=== PATIENT | male | born 1945 | race Caucasian/White ===

== ENCOUNTER → 2017-09-03 | Outpatient (CLI) | payer MEDICARE, OTHER ==
[~2017-09-03] MED LIST: CLPD75T PO; LISI10TA2 PO; SIMV80TA3 PO
== END ==
LOC: CARD 11:42
PROVIDERS: ATTEND Internal Medicine Cardiovascular Disease
DX: I25.10 Atherosclerotic heart disease of native coronary artery without angina pectoris (principal); I63.9 Cerebral infarction, unspecified; I10 Essential (primary) hypertension; E78.2 Mixed hyperlipidemia; I34.0 Nonrheumatic mitral (valve) insufficiency
CPT/HCPCS: 93306

== ENCOUNTER → 2019-03-16 | Outpatient (CLI) | payer MEDICARE, OTHER ==
[~2019-03-16] VITALS: Ht 180 cm; Wt 100.0 kg
[~2019-03-16] MED LIST changes: +CALC625T PO; +CATHETER FLUSH 10 ML SYR IV PRN; +CLOP75TA28 PO; +CYAN250014 PO; +DIPH25TA31 PO; +HYDR25TA4 PO; +IBUP-2185 PO; +LISI-552 PO; +MG T1TAB2 PO; +SIMV40TA25 PO; +SIMV80TA21 PO
[2019-03-16 13:10] VITALS: BP 123/71
--- NOTE | 2019-03-16 18:28 | STRESS TEST ---
DATE OF SERVICE: 03/16/2019 EXERCISE MYOVIEW STRESS TEST Baseline heart rate is 50, baseline blood pressure 121/63. Baseline EKG is sinus rhythm with no ischemic changes. In summary, the patient was injected with 10.44 mCi of technetium-99 Myoview and the resting images were obtained. Then, the patient started exercising with baseline heart rate, blood pressure and EKG mentioned above. Early in exercise, the patient started to have ventricular bigeminy, was able to exercise for a total of 4 minutes and 50 seconds on standard Elbert protocol. With peak exercise level, EKG was showing nondiagnostic changes. The patient was injected with 28.9 mCi of technetium-99 Myoview. During recovery, heart rate and blood pressure returned to baseline. EKG returned to baseline. The resting and stress images were reviewed and compared in the short axis, horizontal long axis, and vertical long axis views. Review of the images showed decreased uptake involving the true apex and anteroapical segment with mild reversibility. SSS is 5, SDS 3, TID value 1.15. On the images, the left ventricle is normal in size with hypokinesia at the inferior wall and inferolateral wall. Calculated ejection fraction is 44%. CONCLUSION: 1. Fair exercise tolerance, a total of 4 minutes and 50 seconds on standard Elbert protocol, total of 6.8 METs achieving 95% of maximum expected heart rate. 2. Exercise-induced frequent premature ventricular contractions and ventricular bigeminy. 3. Nondiagnostic EKG changes with exercise returned to baseline during recovery. 4. Mild reversible ischemia involving the true apex and anteroapical segment. 5. Normal left ventricular size with hypokinesia at the inferior wall and inferolateral wall. Calculated ejection fraction is 44%. Job ID: [id number] DocumentID: [id number] Dictated Date: 03/16/2019 17:13:18 Engineering Mechanic Date: 03/16/2019 18:27:09 Dictated By: NANDO BECK MD
== END ==
LOC: CARD 11:16
PROVIDERS: ATTEND Internal Medicine Cardiovascular Disease
DX: I25.10 Atherosclerotic heart disease of native coronary artery without angina pectoris (principal); E78.2 Mixed hyperlipidemia; I10 Essential (primary) hypertension
CPT/HCPCS: 78452; 93017

== ENCOUNTER 2019-03-18 07:47 | Day surgery (SDC) | payer MEDICARE, OTHER ==
[2019-03-18] VITALS (9 sets, daily range): BP systolic 105–135; BP diastolic 65–74
[~2019-03-18] VITALS: Ht 180 cm; Wt 98.8 kg
[~2019-03-18 07:47] MED LIST changes: -CALC625T PO; -CATHETER FLUSH 10 ML SYR IV PRN; -CLOP75TA28 PO; -CYAN250014 PO; -DIPH25TA31 PO; -HYDR25TA4 PO; -IBUP-2185 PO; -LISI-552 PO; -MG T1TAB2 PO; -SIMV40TA25 PO; -SIMV80TA21 PO
[2019-03-18] MEDS ORDERED: LIDOCAINE 1% INJ 20 ML 20 ML VIAL ONE (07:52)
[2019-03-18] MEDS ORDERED: HEParin 1000 UNIT/ML (10ML VIAL) FOR BOLUS ONE (07:52)
[2019-03-18] MEDS ORDERED: NS IV 1000 ML 3,000 ML ONE (07:52)
[2019-03-18] MEDS ORDERED: NS IV 1000 ML 1,000 ML IV SCH ×2 (07:57→10:02)
--- NOTE | 2019-03-18 08:25 | Diagnostic Imaging Report ---
INDICATION: Pre-heart catheterization and shortness breath. TIME OF EXAM: 8:15 AM Comparison is made with prior chest from 11/30/2013. There is linear atelectasis or scarring in both bases. Otherwise lungs are clear. No effusion or pneumothorax seen. The heart size is normal. IMPRESSION: No acute cardiopulmonary process is detected. Dictated by: Dictated on workstation # [id number]
[2019-03-18 08:32] LABS: HEMOGLOBIN 15.5 G/DL (13.3-17.7); MEAN PLATELET VOLUME 10.7 FL (7.4-10.4); RED CELL DISTRIBUTION WIDTH 12.7 % (10.0-14.5); WHITE BLOOD COUNT 4.6 10^3/uL (4.3-11.0)
[2019-03-18] MEDS ORDERED: SIMV80TA21 PO (08:35)
[2019-03-18] MEDS ORDERED: CLOP75TA28 PO (08:35)
[2019-03-18] MEDS ORDERED: HYDR25TA4 PO (08:35)
[2019-03-18] MEDS ORDERED: LISI-552 PO (08:35)
[2019-03-18] MEDS ORDERED: SIMV40TA25 PO (08:43)
[2019-03-18] MEDS ORDERED: IBUP-2185 PO (08:43)
[2019-03-18] MEDS ORDERED: CALC625T PO (08:43)
[2019-03-18] MEDS ORDERED: CYAN250014 PO (08:43)
[2019-03-18] MEDS ORDERED: MG T1TAB2 PO (08:43)
[2019-03-18] MEDS ORDERED: DIPH25TA31 PO (08:43)
[2019-03-18 08:46] LABS: PROTHROMBIN TIME PATIENT 13.3 SEC (12.2-14.7)
[2019-03-18 08:55] LABS: ALANINE AMINOTRANSFERASE 19 U/L (0-55); ALBUMIN 4.6 GM/DL (3.2-4.5); ALKALINE PHOSPHATASE 59 U/L (40-136); BILIRUBIN,TOTAL 0.7 MG/DL (0.1-1.0); BUN/CREATININE RATIO 16; CALCIUM 9.3 MG/DL (8.5-10.1); CARBON DIOXIDE 23 MMOL/L (21-32); CHLORIDE 102 MMOL/L (98-107); CHOLESTEROL 140 MG/DL (< 200); CREATININE SERUM 1.45 MG/DL (0.60-1.30); GFR ESTIMATED 47; GLUCOSE 100 MG/DL (70-105); HDL CHOLESTEROL 41 MG/DL (40-60); POTASSIUM 4.3 MMOL/L (3.6-5.0); SODIUM 136 MMOL/L (135-145); TOTAL PROTEIN 7.3 GM/DL (6.4-8.2); TRIGLYCERIDES 96 MG/DL (<150); VLDL CHOLESTEROL 19 MG/DL (5-40)
--- NOTE | 2019-03-18 09:08 | Cardiac Procedure Note-CS/ASA ---
Pre-Procedure Note Pre-Op Procedure Note H&P Reviewed The H&P was reviewed, patient examined and no changes noted. Date H&P Reviewed: Mar 18, 2019 Time H&P Reviewed: 09:08 Conscious Sedation Pre-Proced Time 09:08 ASA Score 3 For ASA 3 and 4: Consider anesthesia and medical clearance. Also, for patients with a history of failed moderate sedation consider anesthesia. Airway Lungs Heart ASA score ASA 1: a normal healthy patient ASA 2: a patient with a mild systemic disease (mid diabetes, controlled hypertension, obesity x ASA 3: a patient with a severe systemic disease that limits activity (angina, COPD, prior Myocardial infarction) ASA 4: a patient with an incapacitating disease that is a constant threat to life (CHF, renal failure) ASA 5: a moribund patient not expected to survive 24 hrs. (ruptured aneurysm) ASA 6: a declared brain- patient whose organs are being harvested. For emergent operations, add the letter E after the classification Mallampati Classification Grade 3 Sedation Plan Analgesia, Amnesia, Plan communicated to team members, Discussed options with patient/fam, Discussed risks with patient/fam The patient is an appropriate candidate to undergo the planned procedure, sedation, and anesthesia. The patient immediately re-assessed prior to indication. NANDO BECK MD Mar 18, 2019 09:08 POS
[2019-03-18] MEDS ORDERED: MIDAZOLAM 5 MG/5 ML (VERSED) VIAL ONE (09:23)
[2019-03-18] MEDS ORDERED: fentaNYL INJECTION 100 MCG/2 ML AMP ONE (09:23)
--- NOTE | 2019-03-18 10:05 | Discharge Inst-Post CATH ---
Discharge Inst-CATH/EP Problems Reviewed?: Yes Post Cardiac Cath/EP D/C Inst Follow Up/Plan Appointment with Dr De La Rosa's office in 4 weeks <b>CARDIAC CATH/EP PROCEDURE DISCHARGE INSTRUCTIONS</b> ACTIVITY * Go Home directly and rest. * Limit activity of the leg (or wrist if it was used) for 7 days including aerobics, swimming, jogging, bicycling, etc. * Restrict stair-climbing for 7 days if possible, if not, climb up with your n on-cath leg, then bring together on the same step. * Avoid lifting, pushing, pulling or excessive movement of the affected ex tremity for 7 days. * Customary sexual activity may be resumed after 2 days-use caution not to use a position that strains or causes pain to the affected extremity. * No driving for 24 hours. * NO SMOKING. * Avoid straining for bowel movements for 7 days. * Gentle walking on level ground is allowed. * Returning to work will depend on the type of procedure and the results. Your doctor will discuss this with you. CALL YOUR DOCTOR FOR ANY OF THE FOLLOWING: *If bleeding from the puncture site occurs- Apply gentle pressure to site with clean cloth and call your doctor or EMS. * If a knot or lump forms under the skin, increases in size, or causes pain. * If bruising appears to be worsening or moving further down your leg instead of disappearing. * Temperature above 101 F. CARE OF YOUR GROIN INCISION; * Bruising or purple discoloration of the skin near the puncture site is common. * You may shower only, no bathtub bathing for 5 days. Be careful to avoid slipping as your leg may feel stiff. * If a closure device was used on your femoral artery, please see the attached guide regarding care of the device and your leg. * Leave dressing on FOR 24 hours. CARE OF YOUR WRIST INCISION; * Bruising or purple discoloration of the skin near the puncture site is common. * You may shower. * DO NOT submerge wrist. * Leave dressing on FOR 24 hours. NANDO DE LA ROSA MD Mar 18, 2019 10:05 POS
--- NOTE | 2019-03-18 10:08 | Cardiac Cath Report ---
Cardiac Cath Report Physician (s)/Media Strategist (s) Physician NANDO BECK MD Pre-Procedure Diagnosis Pre-Procedure Diagnosis: Coronary artery disease Post-Procedure Note Procedure Start Date: Mar 18, 2019 Name of Procedure: Left heart catheterization Findings/Procedure Note PROCEDURE NOTE: 73-year-old gentleman with history of mild coronary artery disease per cardiac catheterization 2013, had an abnormal stress test, scheduled for cardiac catheterization possible PTCA. After explaining the procedure to the patient, all pros and cons were explained, all questions were answered. The patient signed the consent and then he was placed on the cardiac catheterization laboratory. Groin was prepped SL fashion local anesthesia was used. Sheath placed in the right femoral artery. Jose right and left catheter were used to access the coronary system. JR catheter was crossed over to the left ventricular cavity, no left ventriculogram was done, pressure was measured, pullback LV to aorta was done. At the end of the procedure the sheath was removed. Closure device was used FINDINGS: Hemodynamics LV 98/6, end-diastolic pressure of 6 Aorta 105/53 mean of 73 ANATOMY: Left Main is small to moderate in size with no obstructive disease Left Anterior Descending is small to moderate size with mild disease nonobstructive disease Left Circumflex is small to moderate in size with mild disease nonobstructive disease Right Coronory Artery is small to moderate in size with mild disease nonobstructive disease LV Gram was not done, pressure was measured CONCLUSION: 1. Small to moderate size coronary system with no sig obstructive disease, mild disease distally 2. Elevated left ventricular end-diastolic pressure DISCUSSION AND RECOMMENDATION: medical therapy is recommended no intervention is needed Anesthesia Type: Conscious Sedation Estimated blood loss (mL): 20 ml Contrast Amount: 12 ml Total Radiation Dose: 202 mGy Post-Procedure Diagnosis Post-operative diagnosis: Chest pain Coronary artery disease Hypertension Hyperlipidemia NANDO BECK MD Mar 18, 2019 10:08 POS
[2019-03-18] MEDS ORDERED: PATIENT MAY USE OWN MEDS, ALL PO SCH (10:15)
--- NOTE | 2019-03-18 11:06 | NUR ---
SPOKE WITH THE PT(HE HAD A MED LIST) WELL CALLING [facility] TO COMPLETE THE MED REC. PT WAS ABLE TO TELL ME HOW/WHEN HE TAKES HIS MEDS, AND THAT MATCHED WITH [facility] DIRECTIONS AND FILL DATES. THE FOLLOWING ARE FILL DATES: 12-23-2018 SIMVASTATIN #90/90DS 01-17-2019 CLOPIDOGREL #90/90DS 02-13-2019 LISINOPRIL #90/90DS 03-09-2019 HCTZ #30/30DS OTC MEDS: DIPHENHYDRAMINE FIBERCON B-12 IBUPROFEN
--- NOTE | 2019-03-18 12:10 | NUR ---
RECEIVED REPORT FROM YANDY MCKINNEY AT THIS TIME. PATIENT 30 DEGREES AT THIS TIME WITH NO COMPLAINTS, RIGHT GROIN IS SOFT C/D/I WITH NORMAL PEDAL PULSES, VSS. WILL CONTINUE TO MONITOR PATIENT.
--- OUTSIDE RECORDS SUMMARY | 2019-04-13 09:11 | XMS REPORT | Continuity of Care Document ---
Author Organization Unknown Address Unknown Phone Unavailable Allergies Active Description Code Type Severity Reaction Onset Reported/Identified Relationship to Patient Clinical Status Yes NO KNOWN DRUG ALLERGIES UNKNOWN NO KNOWN DRUG ALLERG Yes No Known Drug Allergies [id number] Drug Allergy Unknown N/A 09/15/2013 Medications There is no data. Problems Date Dx Coded Attending Type Code Diagnosis Diagnosed By 09/15/2013 TYLOR SEGUNDO MD Ot 401.9 HYPERTENSION NOS 09/15/2013 TYLOR SEGUNDO MD Ot 437.1 AC CEREBROVASC INSUF NOS 09/15/2013 TYLOR SEGUNDO MD Ot 728.87 MUSCLE WEAKNESS (GENERALIZED) 09/15/2013 TYLOR SEGUNDO MD Ot V58.69 OTH MED,LT,CURRENT USE 11/30/2013 NANDO BECK MD Ot 272. 4 HYPERLIPIDEMIA NEC/NOS 11/30/2013 NANDO BECK MD Ot 401. 9 HYPERTENSION NOS 11/30/2013 NANDO BECK MD Ot 414. 01 CORONARY ATHEROSCLEROSIS OF [place] CORON 11/30/2013 NANDO BECK MD Ot 427. 89 CARDIAC DYSRHYTHMIAS NEC 11/30/2013 NANDO BECK MD Ot 786. 50 CHEST PAIN NOS 11/30/2013 NANDO BECK MD Ot V12. 54 PERSONAL HX OF TIA, CEREBRAL INFARCTION 11/30/2013 NANDO BECK MD, Ot V58. 69 OTH MED,LT,CURRENT USE 12/18/2014 NANDO BECK MD Ot 272. 4 12/18/2014 NANDO BECK MD Ot 401. 9 12/18/2014 NANDO BECK MD Ot 414. 00 12/18/2014 NANDO BECK MD Ot 434. 91 12/20/2014 DANIAL TIRADO MD Ot 729. 5 01/02/2015 NANDO BECK MD Ot 272. 4 01/02/2015 NANDO BECK MD Ot 401. 9 01/02/2015 NANDO BECK MD Ot 414. 00 01/02/2015 NANDO BECK MD Ot 434. 91 01/08/2015 DANIAL TIRADO MD Ot 729. 5 02/27/2015 NANDO BECK MD Ot E78. 5 02/27/2015 NANDO BECK MD Ot I10 02/27/2015 NANDO BECK MD Ot I25. 9 02/27/2015 NANDO BECK MD Ot I63. 50 03/16/2015 NANDO BECK MD Ot E78. 5 03/16/2015 NANDO BECK MD Ot I10 03/16/2015 NANDO BECK MD Ot I25. 9 03/16/2015 NANDO BECK MD Ot I63. 50 09/03/2017 NANDO BECK MD Ot 397. 0 TRICUSPID VALVE DISEASE 09/03/2017 NANDO BECK MD Ot 401. 9 HYPERTENSION NOS 09/03/2017 NANDO BECK MD Ot 424. 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 4 HYPERLIPIDEMIA NEC/NOS 09/03/2017 NANDO BECK MD Ot 401. 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 4 HYPERLIPIDEMIA NEC/NOS 09/03/2017 NANDO BECK MD Ot 401. 9 HYPERTENSION NOS 09/03/2017 NANDO BECK MD Ot 427. 89 CARDIAC DYSRHYTHMIAS NEC 09/03/2017 NANDO BECK MD Ot 272. 4 HYPERLIPIDEMIA NEC/NOS 09/03/2017 NANDO BECK MD Ot 401. 9 HYPERTENSION NOS 09/03/2017 NANDO BECK MD Ot 414. 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 5 PAIN IN LIMB 09/03/2017 NANDO BECK MD Ot E78. 5 HYPERLIPIDEMIA, UNSPECIFIED 09/03/2017 NANDO BECK MD Ot I10 ESSENTIAL (PRIMARY) HYPERTENSION 09/03/2017 NANDO BECK MD Ot I25. 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 2 MIXED HYPERLIPIDEMIA 09/04/2017 NANDO BECK MD Ot I10 ESSENTIAL (PRIMARY) HYPERTENSION 09/04/2017 NANDO BECK MD Ot I25. 10 ATHSCL HEART DISEASE OF [place] CORONARY 09/04/2017 NANDO BECK MD Ot I34. 0 NONRHEUMATIC MITRAL (VALVE) INSUFFICIENC 09/04/2017 NANDO BECK MD Ot I63. 9 CEREBRAL INFARCTION, UNSPECIFIED 09/23/2017 NANDO BECK MD Ot E78. 2 MIXED HYPERLIPIDEMIA 09/23/2017 NANDO BECK MD Ot I10 ESSENTIAL (PRIMARY) HYPERTENSION 09/23/2017 NANDO BECK MD Ot I25. 10 ATHSCL HEART DISEASE OF [place] CORONARY 09/23/2017 NANDO BECK MD Ot I34. 0 NONRHEUMATIC MITRAL (VALVE) INSUFFICIENC 09/23/2017 NANDO BECK MD, Ot I63. 9 CEREBRAL INFARCTION, UNSPECIFIED 09/25/2017 Vladimir Sotomayor 883.0 OPEN WOUND OF FINGERS, WITHOUT MENTION OF COMPLICATION 09/25/2017 Vladimir Sotomayor E906.0 DOG BITE 09/25/2017 Vladimir Sotomayor S61.251A OPEN BITE OF LEFT INDEX FINGER W/O DAMAGE TO NAIL, INIT 09/25/2017 Vladimir Sotomayor S61.253A OPEN BITE OF LEFT MIDDLE FINGER W/O DAMAGE TO NAIL, INIT 09/25/2017 Vladimir Sotomayor W54.0XXA BITTEN BY DOG, INITIAL ENCOUNTER 09/28/2017 Vladimir Sotomayor V58.31 ENCOUNTER FOR CHANGE OR REMOVAL OF SURGICAL WOUND DRESSING 09/28/2017 Vladimir Sotomayor Z48.01 ENCOUNTER FOR CHANGE OR REMOVAL OF SURGICAL WOUND DRESSING 10/05/2017 Vladimir Sotomayor V58.32 ENCOUNTER FOR REMOVAL OF SUTURES 10/05/2017 Vladimir Sotomayor Z48.02 ENCOUNTER FOR REMOVAL OF SUTURES 03/16/2019 NANDO BECK MD Ot 397. 0 TRICUSPID VALVE DISEASE 03/16/2019 NANDO BECK MD Ot 401. 9 HYPERTENSION NOS 03/16/2019 NANDO BECK MD Ot 424. 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 4 HYPERLIPIDEMIA NEC/NOS 03/16/2019 NANDO BECK MD Ot 401. 9 HYPERTENSION NOS 03/16/2019 NANDO BECK MD Ot 427. 89 CARDIAC DYSRHYTHMIAS NEC 03/16/2019 NANDO BECK MD Ot 272. 4 HYPERLIPIDEMIA NEC/NOS 03/16/2019 NANDO BECK MD Ot 401. 9 HYPERTENSION NOS 03/16/2019 NANDO BECK MD Ot 414. 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 5 PAIN IN LIMB 03/16/2019 NANDO BECK MD Ot E78. 5 HYPERLIPIDEMIA, UNSPECIFIED 03/16/2019 NANDO BECK MD Ot I10 ESSENTIAL (PRIMARY) HYPERTENSION 03/16/2019 NANDO BECK MD Ot I25. 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 2 MIXED HYPERLIPIDEMIA 03/16/2019 NANDO BECK MD Ot I10 ESSENTIAL (PRIMARY) HYPERTENSION 03/16/2019 NANDO BECK MD Ot I25. 10 ATHSCL HEART DISEASE OF [place] CORONARY 03/16/2019 NANDO BECK MD Ot I34. 0 NONRHEUMATIC MITRAL (VALVE) INSUFFICIENC 03/16/2019 NANDO BECK MD Ot I63. 9 CEREBRAL INFARCTION, UNSPECIFIED 03/18/2019 NANDO BECK MD Ot E66. 9 OBESITY, UNSPECIFIED 03/18/2019 NANDO BECK MD Ot E78. 2 MIXED HYPERLIPIDEMIA 03/18/2019 NANDO BECK MD Ot I10 ESSENTIAL (PRIMARY) HYPERTENSION 03/18/2019 NANDO BECK MD Ot I25. 10 ATHSCL HEART DISEASE OF [place] CORONARY 03/18/2019 NANDO BECK MD Ot I49. 3 VENTRICULAR PREMATURE DEPOLARIZATION 03/18/2019 NANDO BECK MD Ot Z68. 31 BODY MASS INDEX (BMI) 31.0-31.9, ADULT 03/18/2019 NANDO BECK MD Ot Z79. 02 CUSTODIAL (CURRENT) USE OF ANTITHROMBOTI 03/18/2019 NANDO BECK MD Ot Z79.899 OTHER STRIPPING SHOVEL OILER (CURRENT) DRUG THERAPY 03/18/2019 NANDO BECK MD Ot Z82. 49 FAMILY HX OF ISCHEM HEART DIS AND OTH DI 03/18/2019 NANDO BECK MD Ot Z86. 73 PRSNL HX OF TIA (TIA), AND CEREB INFRC W 03/18/2019 NANDO BECK MD Ot Z90. 89 ACQUIRED ABSENCE OF OTHER ORGANS 03/18/2019 NANDO BECK MD Ot Z91.013 ALLERGY TO SEAFOOD 03/24/2019 NANDO BECK MD Ot E66. 9 OBESITY, UNSPECIFIED 03/24/2019 NANDO BECK MD Ot E78. 2 MIXED HYPERLIPIDEMIA 03/24/2019 NANDO BECK MD Ot I10 ESSENTIAL (PRIMARY) HYPERTENSION 03/24/2019 NANDO BECK MD Ot I25. 10 ATHSCL HEART DISEASE OF [place] CORONARY 03/24/2019 NANDO BECK MD Ot I49. 3 VENTRICULAR PREMATURE DEPOLARIZATION 03/24/2019 NANDO BECK MD Ot Z68. 31 BODY MASS INDEX (BMI) 31.0-31.9, ADULT 03/24/2019 NANDO BECK MD Ot Z79. 02 CUSTODIAL (CURRENT) USE OF ANTITHROMBOTI 03/24/2019 NANDO BECK MD Ot Z79.899 OTHER STRIPPING SHOVEL OILER (CURRENT) DRUG THERAPY 03/24/2019 NANDO BECK MD Ot Z82. 49 FAMILY HX OF ISCHEM HEART DIS AND OTH DI 03/24/2019 NANDO BECK MD Ot Z86. 73 PRSNL HX OF TIA (TIA), AND CEREB INFRC W 03/24/2019 NANDO BECK MD, Ot Z90. 89 ACQUIRED ABSENCE OF OTHER ORGANS 03/24/2019 NANDO BECK MD, Ot Z91.013 ALLERGY TO SEAFOOD 04/11/2019 NANDO BECK MD, Ot E78. 2 MIXED HYPERLIPIDEMIA 04/11/2019 NANDO BECK MD, Ot I10 ESSENTIAL (PRIMARY) HYPERTENSION 04/11/2019 NANDO BECK MD, Ot I25. 10 ATHSCL HEART DISEASE OF [place] CORONARY Procedures There is no data. Results Test Result Range Methicillin resistant Staphylococcus aur eus (MRSA) screening culture - 03/18/19 08:20 Methicillin resistant Staphylococcus aureus (MRSA) scr eening culture NG NRG Automated blood complete blood count (he mogram) panel - 03/18/19 08:26 Blood leukocytes automated count (number/volume) 4.6 10*3/uL 4.3-11.0 Blood erythrocytes automated count (number/volume) 5.12 10*6/uL 4.35-5.85 Venous blood hemoglobin measurement (mass/volume) 15.5 g/dL 13.3-17.7 Blood hematocrit (volume fraction) 45 % 40-54 Automated erythrocyte mean corpuscular volume 87 [ foz_us] 80-99 Automated erythrocyte mean corpuscular h emoglobin (mass per erythrocyte) 30 pg 25-34 Automated erythrocyte mean corpuscular h emoglobin concentration measurement (mass/volume) 35 g/dL 32-36 Automated erythrocyte distribution width ratio 12. 7 % 10.0- 14.5 Automated blood platelet count (count/volume) 201 10*3/uL 130-400 Automated blood platelet mean volume measurement 10.7 [foz_us] 7.4-10.4 PT panel in platelet poor plasma by coag ulation assay - 03/18/19 08:26 Prothrombin time (PT) in platelet poor plasma by coagu lation assay 13.3 s 12.2-14.7 INR in platelet poor plasma or blood by coagulation as say 1.0 0.8-1.4 Activated partial thromboplastin time (a PTT) in platelet poor plasma bycoagulation assay - 03/18/19 08:26 Activated partial thromboplastin time (a PTT) in platelet poor plasma bycoagulation assay 21 s 24-35 Comprehensive metabolic panel - 03/18/19 08:26 Serum or plasma sodium measurement (moles/volume) 136 mmol/L 135-145 Serum or plasma potassium measurement (moles/volume) 4.3 mmol/L 3.6-5.0 Serum or plasma chloride measurement (moles/volume) 102 mmol/L 98-107 Carbon dioxide 23 mmol/L 21-32 Serum or plasma anion gap determination (moles/volume) 11 mmol/L 5-14 Serum or plasma urea nitrogen measurement (mass/volume ) 23 mg/dL 7-18 Serum or plasma creatinine measurement (mass/volume) 1.45 mg/dL 0.60-1.30 Serum or plasma urea nitrogen/creatinine mass ratio 16 NRG Serum or plasma creatinine measurement w ith calculation of estimated glomerular filtration rate 47 NRG Serum or plasma glucose measurement (mass/volume) 100 mg/dL 70-105 Serum or plasma calcium measurement (mass/volume) 9.3 mg/dL 8.5-10.1 Serum or plasma total bilirubin measurement (mass/volu me) 0.7 mg/dL 0.1-1.0 Serum or plasma alkaline phosphatase magen surement (enzymatic activity/volume) 59 U/L 40-136 Serum or plasma aspartate aminotransfera se measurement (enzymatic activity/volume) 20 U/L 5-34 Serum or plasma alanine aminotransferase measurement (enzymatic activity/volume) 19 U/L 0-55 Serum or plasma protein measurement (mass/volume) 7.3 g/dL 6.4-8.2 Serum or plasma albumin measurement (mass/volume) 4.6 g/dL 3.2-4.5 Lipid 1996 panel - 03/18/19 08:26 Serum or plasma triglyceride measurement (mass/volume) 96 mg/dL <150 Serum or plasma cholesterol measurement (mass/volume) 140 mg/dL < 200 Serum or plasma cholesterol in HDL measurement (mass/v olume) 41 mg/dL 40-60 Cholesterol in LDL [mass/volume] in serum or plasma by direct assay 90 mg/dL 1-129 Serum or plasma cholesterol in VLDL measurement (mass/ volume) 19 mg/dL 5-40 Encounters ACCT No. Visit Date/Time Discharge Status Pt. Type Provider Facility Loc./Unit Complaint [id number] 03/18/2019 07:47:00 019 13:20:00 DIS Outpatient NANDO BECK MD [facility] CATH ABN STRESS [id number] 03/16/2019 11:16:00 019 23:59:59 CLS Outpatient NANDO BECK MD [facility] CARD HTN, CAD, MIXED HYPERLI PIDEMIA [id number] 09/03/2017 11:42:00 018 23:59:59 CLS Outpatient NANDO BECK MD [facility] CARD I25.10 CAD [id number] 02/24/2015 10:12:00 23:59:59 CLS Outpatient NANDO BECK MD [facility] LAB CAD CVA HTN HYPERLIPIDE YOLANDA [id number] 12/13/2014 13:42:00 015 23:59:59 CLS Outpatient NANDO BECK MD [facility] CARD CAD,CVA,HTN,HLP [id number] 11/29/2014 10:03:00 015 23:59:59 CLS Outpatient CELESTINO MCCABE, DANIAL Arriaga [facility] RAD L MEDIAL CALC PAIN [id number] 11/30/2013 07:01:00 014 15:45:00 DIS Outpatient NANDO BECK MD [facility] CATH ABNORMAL STRESS, HTN,HL P CVA [id number] 11/22/2013 14:06:00 014 23:59:59 CLS Outpatient NANDO BECK MD [facility] CARD HYPERTENSION HYPERLIPID EMIA CVA [id number] 10/05/2013 12:24:00 014 23:59:59 CLS Outpatient NANDO BECK MD [facility] CARD CVA,HTN,HLP [id number] 09/19/2013 14:25:00 014 23:59:59 CLS Outpatient NANDO BECK MD [facility] CARD CVA,HTN,HLP [id number] 09/15/2013 14:09:00 014 16:13:00 DIS Emergency SANYA MCCABE, TYLOR Arriaga [facility] ER LEFT SIDE WEAKN ESS [id number] 10/05/2017 11:34:00 10/05/2017 12:11: 00 DIS Outpatient Vladimir Sotomayor [id number] 09/28/2017 09:48:00 09/28/2017 10:20: 00 DIS Outpatient Vladimir Sotomayor [id number] 09/25/2017 10:18:00 09/25/2017 12:15: 00 DIS Outpatient Vladimir Sotomayor
== END 2019-03-18 13:20 | disposition home or self-care (01) ==
LOC: CATH 07:47 → SDC 10:21 → CATH 13:20
PROVIDERS: ATTEND Internal Medicine Cardiovascular Disease
DX: I25.10 Atherosclerotic heart disease of native coronary artery without angina pectoris (principal); I10 Essential (primary) hypertension; I49.3 Ventricular premature depolarization; E66.9 Obesity, unspecified; E78.2 Mixed hyperlipidemia; Z68.31 Body mass index [BMI] 31.0-31.9, adult; Z86.73 Personal history of transient ischemic attack (TIA), and cerebral infarction without residual deficits; Z91.013 Allergy to seafood; Z79.02 Long term (current) use of antithrombotics/antiplatelets; Z79.899 Other long term (current) drug therapy; Z90.89 Acquired absence of other organs; Z82.49 Family history of ischemic heart disease and other diseases of the circulatory system
CPT/HCPCS: 36415; 71045; 80053; 80061; 85027; 85610; 85730; 87081; 93458

== ENCOUNTER 2021-09-25 05:33 | Outpatient (CLI) | payer MEDICARE ==
[~2021-09-25] VITALS: Ht 177.8 cm; Wt 102.1 kg
[~2021-09-25 05:33] MED LIST changes: +CALC625T PO; +CLOP75TA28 PO; +CYAN250014 PO; +DIPH25TA31 PO; +HYDR25TA4 PO; +IBUP-2185 PO; +LISI20TA26 PO; +MG T1TAB2 PO; +SIMV40TA25 PO; +SIMV80TA21 PO
== END 2021-09-25 09:25 | disposition home or self-care (01) ==
LOC: PREOP 05:33
PROVIDERS: ATTEND Internal Medicine
DX: Z01.818 Encounter for other preprocedural examination (principal)

== ENCOUNTER 2021-10-04 07:34 | Day surgery (SDC) | payer MEDICARE, OTHER ==
--- NOTE | 2021-09-25 07:38 | HISTORY AND PHYSICAL ---
DATE OF SERVICE: COLONOSCOPY HISTORY AND PHYSICAL HISTORY OF PRESENT ILLNESS: The patient is a 76-year-old white male presented to the office for evaluation of hypertension and hypogonadism on testosterone replacement. Reports that he has been feeling well, usual aches and pains. Did report he had an episode of painless bright red blood per rectum 3 weeks ago. He has not had recurrence. He reports that he had one colonoscopy that he thinks was unremarkable, but this was over 20 years ago. He denies bowel habit change or abdominal pain and there has been no change in weight. PHYSICAL EXAMINATION: GENERAL: Reveals a white male, appeared to be in no acute distress. VITAL SIGNS: Weight at 225 pounds is down 2.4 pounds from 6 months ago. Blood pressure 124/68. CHEST: Clear. CARDIOVASCULAR: Regular rate and rhythm, soft 1 to 2/6 systolic ejection murmur heard best at second right intercostal space without evidence of pulsus parvus et tardus. No diastolic murmurs noted. ABDOMEN: Soft, supple without mass, organomegaly or tenderness. Rectal examination deferred at the time of colonoscopy. EXTREMITIES: Reveal no cyanosis, clubbing or edema. ASSESSMENT AND PLAN: 1. The patient is being set up for screening colonoscopy as it has been 20 years. Prep instructions were given, and questions were answered. 2. Hypertension, under good control on lisinopril 20 mg daily. 3. Hyperlipidemia has been under good control on simvastatin. No history of vascular disease. Blood tests including a PSA and testosterone level reviewed. His testosterone was 537. He actually had a level done probably about an hour after he had taken his injection, so it was difficult to say if this is truly a trough level or how much injection may have impacted level, discussed in the future we would be obtaining trough levels and not to take a shot getting level within a day or 2 of his injection. We will see him back in 6 months. We will need CBC, BMP and lipid panel at that time. Job ID: [id number] DocumentID: [id number] Dictated Date: 09/04/2021 15:11:13 Opener Date: 09/04/2021 15:28:34 Dictated By: DANIAL TIRADO MD
[~2021-10-04] VITALS: Ht 177 cm; Wt 102.1 kg
[2021-10-04] MEDS ORDERED: LACTATED RINGERS 1,000 ML IV STA (07:37)
[2021-10-04] MEDS ORDERED: PROPOFOL INJECTION 50 ML IV ONE (07:54)
[2021-10-04 07:55] VITALS: BP 125/72
--- NOTE | 2021-10-04 08:07 | Pre-Op Note & Conscious Sedat ---
Pre-Operative Progress Note H&P Reviewed The H&P was reviewed, patient examined and no changes noted. Date H&P Reviewed: Oct 04, 2021 Time H&P Reviewed: 08:07 Conscious Sedation Pre-Proced ASA Score 2 For ASA 3 and 4: Consider anesthesia and medical clearance. Also, for patients with a history of failed moderate sedation consider anesthesia. Airway Lungs Heart ASA score ASA 1: a normal healthy patient ASA 2: a patient with a mild systemic disease (mid diabetes, controlled hypertension, obesity ASA 3: a patient with a severe systemic disease that limits activity (angina, COPD, prior Myocardial infarction) ASA 4: a patient with an incapacitating disease that is a constant threat to life (CHF, renal failure) ASA 5: a moribund patient not expected to survive 24 hrs. (ruptured aneurysm) ASA 6: a declared brain- patient whose organs are being harvested. For emergent operations, add the letter E after the classification Mallampati Classification Grade 2 Sedation Plan Analgesia, Amnesia, Plan communicated to team members, Discussed options with patient/fam, Discussed risks with patient/fam The patient is an appropriate candidate to undergo the planned procedure, sedation, and anesthesia. The patient immediately re-assessed prior to indication. DANIAL TIRADO MD Oct 04, 2021 08:07
[2021-10-04 08:55] VITALS: BP 93/57
[2021-10-04 09:00] VITALS: BP 99/55
[2021-10-04 09:05] VITALS: BP 103/56
[2021-10-04 09:10] VITALS: BP 104/57
[2021-10-04 09:23] VITALS: BP 109/60
--- NOTE | 2021-10-04 11:48 | Anesthesia-General Post-Op ---
MAC Patient Condition Mental Status/LOC: Same as Preop Cardiovascular: Satisfactory Nausea/Vomiting: Absent Respiratory: Satisfactory Pain: Controlled Complications: Absent Post Op Complications Complications None Follow Up Care/Instructions Patient Instructions None needed. Anesthesiology Discharge Order Discharge Order Patient is doing well, no complaints, stable vital signs, no apparent adverse anesthesia problems. No complications reported per nursing. IMER SIMMONS CRNA Oct 04, 2021 11:48
--- NOTE | 2021-10-04 15:25 | OPERATIVE REPORT ---
DATE OF SERVICE: COLONOSCOPY SUMMARY INDICATION FOR THE PROCEDURE: Screening. I am his primary care provider. DESCRIPTION OF PROCEDURE: The patient was placed in the left lateral decubitus position. Prior to undergoing colonoscopy, digital rectal evaluation was performed. The prostate is mild to moderately enlarged. Right lobe was a little bit firmer than the left, but no nodules were noted. No other abnormalities were noted on digital inspection of the anal canal or distal rectal vault. The patient does have a prominent skin fold, left perianal area, but no evidence for internal or external hemorrhoids were noted. The colonoscope was then inserted into the rectum and under direct visualization advanced to cecum. The cecum was identified by identification of ileocecal valve and cecal strap. Photographic documentation was obtained. Quality of prep was good. FINDINGS: There was no evidence for internal or external hemorrhoids. The rectum, sigmoid colon, descending colon, splenic flexure, transverse colon, hepatic flexure, ascending colon, and cecum were unremarkable. No evidence for diverticular disease or neoplasia. ASSESSMENT: Normal colonoscopy to the cecum. Considering the patient's age, we will not be advocating a future screening colonoscopy. Job ID: [id number] DocumentID: [id number] Dictated Date: 10/04/2021 08:52:21 [employer] Promotional Model Date: 10/04/2021 15:25:05 Dictated By: DANIAL TIRADO MD
== END 2021-10-04 09:40 | disposition home or self-care (01) ==
LOC: ENDO 07:34
PROVIDERS: ATTEND Internal Medicine
DX: Z12.11 Encounter for screening for malignant neoplasm of colon (principal); I10 Essential (primary) hypertension; E78.5 Hyperlipidemia, unspecified

== ENCOUNTER → 2021-11-11 | Outpatient (CLI) | payer MEDICARE, OTHER ==
--- NOTE | 2021-11-11 15:12 | Diagnostic Imaging Report ---
INDICATION: Shortness of breath PA and lateral chest Heart size and pulmonary vascularity are normal. Lungs are clear. There are no effusions or pneumothoraces. IMPRESSION: No acute abnormalities in the chest. Dictated by: Dictated on workstation # [id number]
== END ==
LOC: RAD 14:41
PROVIDERS: ATTEND Nurse Practitioner Family
DX: R53.83 Other fatigue (principal); R06.02 Shortness of breath
CPT/HCPCS: 71046

== ENCOUNTER → 2021-11-12 | Outpatient (CLI) | payer MEDICARE, OTHER | LOC: CARDFS 12:52 | PROVIDERS: ATTEND Internal Medicine Cardiovascular Disease | DX: I11.9 Hypertensive heart disease without heart failure (principal) | CPT/HCPCS: 93306 ==

== ENCOUNTER → 2022-04-29 | Outpatient (CLI) | payer MEDICARE, OTHER ==
--- NOTE | 2022-04-29 16:33 | Diagnostic Imaging Report ---
PROCEDURE: MRI lumbar spine. TECHNIQUE: Multiplanar, multisequence MRI of the lumbar spine was performed without contrast. INDICATION: Low back pain with radiculopathy bilaterally. COMPARISON: None. FINDINGS: Alignment of the lumbar spine appears normal. Vertebral body heights are preserved. Disc heights are generally preserved, although there is decreased T2 signal at L1-L2, L3-L4 and L4-L5. No bony lesions are seen. Soft tissues about the lumbar spine demonstrate no acute abnormality. The conus terminates in appropriate position. T12-L1: No disc bulge. No spinal canal or foraminal stenosis. L1-L2: Diffuse disc bulge with facet arthropathy. Minimal spinal canal narrowing. No foraminal stenosis. L2-L3: Diffuse disc bulge and facet arthropathy. No spinal canal stenosis. Mild bilateral foraminal narrowing. L3-L4: Diffuse disc bulge and facet arthropathy and ligamentous infolding. Effacement of the lateral recesses bilaterally. Mild spinal canal narrowing. [id number] bilateral foraminal stenosis. L4-L5: Diffuse disc bulge and facet arthropathy with ligamentous infolding. Mild spinal canal narrowing with effacement of the lateral recesses bilaterally. Severe right and moderate left foraminal stenosis. L5-S1: Diffuse disc bulge and facet arthropathy. No spinal canal stenosis. Severe right and left foraminal stenosis. IMPRESSION: 1. Degenerative disc disease in the lumbar spine. Mild spinal canal narrowing with no high-grade stenosis seen. 2. Multilevel foraminal stenosis, most severe at L4-L5 and L5-S1 on the right. Dictated by: Dictated on workstation # [id number]
== END ==
LOC: RAD 12:46
PROVIDERS: ATTEND Internal Medicine
DX: M51.16 Intervertebral disc disorders with radiculopathy, lumbar region (principal); M48.061 Spinal stenosis, lumbar region without neurogenic claudication; M48.07 Spinal stenosis, lumbosacral region
CPT/HCPCS: 72148

== ENCOUNTER → 2022-08-18 | Outpatient (CLI) | payer MEDICARE, OTHER ==
--- NOTE | 2022-08-18 19:16 | Diagnostic Imaging Report ---
INDICATION: Right groin pain. AP and oblique views of the right hip are obtained. FINDINGS: No fracture or acute bony abnormality is seen. There is a chronic calcification lateral to the acetabulum superiorly. There is moderate joint space narrowing with significant irregularity of the superior acetabulum. IMPRESSION: Chronic changes of the right hip as above with no overt acute abnormality. Dictated by: Dictated on workstation # [id number]
== END ==
LOC: RAD 15:15
PROVIDERS: ATTEND Internal Medicine
DX: M16.11 Unilateral primary osteoarthritis, right hip (principal); R10.31 Right lower quadrant pain
CPT/HCPCS: 73502